=== PATIENT | male | born 2000 | race Caucasian/White ===

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

== ENCOUNTER → 2023-12-05 | Outpatient (CLI) | payer OTHER, SELFPAY ==
--- NOTE | 2023-12-05 10:22 | RAD_ITS ---
STUDY: X-RAY - LEFT KNEE REASON FOR EXAM: Male, 23 years old. Knee injury TECHNIQUE: 3 view(s) of the knee. COMPARISON: None. FINDINGS: Normal visualized distal femur. Normal visualized proximal tibia and fibula. Normal proximal tibiofibular articulation. Normal medial femorotibial compartment. Normal lateral femorotibial compartment. Normal patellofemoral articulation. Moderate-sized joint effusion. RAD/Knee 3 Views IMPRESSION: Moderate-sized joint effusion. Electronically Signed: Delio Larkin MD at 10:45 EDT ,
== END | disposition home or self-care (01) ==
LOC: MTRAD 10:22
PROVIDERS: PCP Family Medicine; Referring Provider Physician Assistant; Visit Provider Physician Assistant
DX: S89.90XA Unspecified injury of unspecified lower leg, initial encounter (principal)
CPT/HCPCS: 73562

== ENCOUNTER 2024-02-06 10:52 | Day surgery (SDC) | payer OTHER, SELFPAY ==
[2024-02-06] VITALS (13 sets, daily range): BP systolic 148–177; BP diastolic 92–109; PULSE 58–95; RESP 16–20; TEMP 36.3–36.9; O2SAT 92–98; BMI 32.2
[2024-02-06] MEDS: Lactated Ringers 1,000 ML 15 ML IV (11:22)
--- NOTE | 2024-02-06 12:07 | PCM.HP.STD ---
HPI - General HPI Narrative DEBORAH LOVETT, is a 23 M who presents for left knee ACL reconstruction, quadriceps tendon autograft. no change to h and p. rab post op instructions and narcotic counselling. left knee marked. ok to proceed. no further questions. MR#: [id number] Acct: [id number] Name: DEBORAH LOVETT Rep #: [id number] : 2000 Provider: Dr. Nnamdi Funez MD Age/Sex: 23/M Location: [facility] [place] Status: Signed Intake Vital Signs 12/04/2409:42 Height 5 ft 9 in Weight: 220 lb BMI 32.5 BP 130/78 H Blood Pressure Location Lt brachial Position Sitting Respiration 15 Pulse 72 Pulse Source NIBP Temp 97.9 F Temp Source Temporal Pulse Oximetry (%) 97 Oxygen Delivery Method room air Intake Visit Reasons: LEFT KNEE Chief Complaint: MRI review Accompanied by: Self Is patient in pain?: Yes Pain scale (1-10): 3 Allergies morphine Adverse Reaction (Mild, Verified 12/27/23 09:00) Vomiting Medications ?Medication ?Instructions ?Recorded ?Confirmed ?Type NK 12/05/23 12/27/23 History PFSH Medical History Complete tear of anterior cruciate ligament of left knee Left knee pain Strain of left knee Internal derangement of left knee Hay fever Surgical History History of tonsillectomy and adenoidectomy No pertinent past surgical history Social History household members: none Smoking Status: Former smoker alcohol intake: current HPI LEFT KNEE Details: This documentation accurately reflects the service provided and the decisions made by me, Dr. Nnamdi Funez MD 12/27/23 0840. Part of today?s visit was documented by [ ], acting as scribe. DEBORAH LOVETT is a 23 year old M here today for FU L knee ACL tear, with disc for review and to book surgery. Supplemental Info report scanned into chart re ACL tear with bone bruises. I independently reviewed the imaging. Concur with radiologist report. Coding Level of Care Code Off vis,est,level 3 Diagnoses Complete tear of anterior cruciate ligament of left knee S83.512A Left knee pain M25.562 Assessment and Plan Assessment and Plan (1) Complete tear of anterior cruciate ligament of left knee: Status: Acute Plan: DEBORAH LOVETT is a 23 year old M here today for FU L knee ACL tear, with disc for review and to book surgery. I agree with the radiologist interpretation. Will have the disc uploaded. Again went over the diagnosis prognosis different treatment options. The patient is interested in surgery. Went over the different graft choices fixation methods as well as postoperative recovery 2 weeks on crutches potentially longer if there is a meniscus tear that was found during surgery and that necessitated repair. Otherwise up to 9 months to a year before returning to sports and other pivoting activities. Patient understands wished to proceed with surgery signed the consent form for left knee arthroscopy, anterior cruciate ligament reconstruction quadriceps tendon autograft. Pros and cons risks and benefits were discussed with the patient including but not limited to infection, pain, stiffness, bleeding, damage to surrounding structures, neurovascular injury, recurrence or retear, failure or wear of hardware or fixation, instability, fracture, deep vein thrombosis and pulmonary embolism, anesthetic risks, , patient dissatisfaction, need for further surgery and other risks. Patient understood and wished to proceed with surgery, and signed the informed consent documentation. (2) Left knee pain: Status: Acute Ortho Exam General General: Yes no acute distress Neurologic: Yes alert and Yes oriented x3 Psychologic: Yes reasonable and appropriate Left Knee KNEE: normal alignment. [facility] Medical History (Updated 01/29/24 @ 12:41 by Mami Benavides) Alcohol use Migraine headache Injury of head and neck Vapes nicotine containing substance History of pain when walking Complete tear of anterior cruciate ligament of left knee Left knee pain Strain of left knee Internal derangement of left knee Hay fever Home Medications ?Medication ?Instructions ?Recorded ?Last Taken ?Type NK 12/05/23 Unknown History Allergy/AdvReac Type Severity Reaction Status Date / Time morphine AdvReac Mild Vomiting Verified 02/06/24 11:17 Surgical History History of tonsillectomy and adenoidectomy No pertinent past surgical history Social History household members: none Smoking Status: Current every day smoker tobacco type: e-cigarettes alcohol intake: current Vital Signs Vital Signs Vital Signs: 02/06/24 11:22 02/06/24 11:22 Temperature 97.9 F Temperature Source Temporal Pulse Rate 58 L Respiratory Rate 17 Respiratory Pattern Normal Blood Pressure 150/93 H Blood Pressure Mean 112 Blood Pressure Source Monitor Blood Pressure Position Semi-Fowlers Blood Pressure Location Left Arm Pulse Ox 98 Oxygen Delivery Method Room Air Weight Weight: 218 lb 4.122 oz Body Mass Index (BMI) 32.2
--- NOTE | 2024-02-06 12:11 | PCM.PRE.AN2 ---
ASA Classification* ASA Classification ASA Classification: 2 Assessment & Plan Anesthesia* Anesthesia Assessment Anesthesia Assessment: Discussed sedation and/or anesthesia options, risks, benefits, and alternatives with patient/parents/legal guardian/POA. Questions invited. The patient/parents/legal guardian/POA seems to understand and agrees to proceed with anesthesia plan. Reviewed the physical assessment, medical history, allergy history and patient home medications list prior to surgery/procedure/anesthetic and documented any changes. Performed airway and anesthesia risk assessments. Anesthesia Type Anesthesia Type: General and Block Anesthesia Focused Assessment* Temperature: 97.9 F Pulse Rate: 58 Blood Pressure: 150/93 Respiratory Rate: 17 Pulse Ox: 98 Airway Assessment Mouth opens: >3 cm Mallampati Score: II Focused Labs Anesthesia Preop lab: CBC CHEMISTRY COAG Pre-Assessment Diagnosis/Proposed Procedure Planned Operative Procedure(s): Left knee Arthroscopy, anterior cruciate ligament reconstruction, quadriceps tendon autograft Anesthesia History Anesthesia History - geosciences professor: Anesthesia History - geosciences professor Hx Hospitalization No 01/29/24 12:41 Any Problems With Anesthesia No 01/29/24 12:41 Cholinesterase deficiency No 01/29/24 12:41 You/Your Family Experience No 01/29/24 12:41 fever (hyperthermia) with Relationship Recent Exposure to Contagious No 02/06/24 11:22 Disease Does patient have nerve No 01/29/24 12:41 stimulator Patient instructed to have device shut off --Does patient have Pacemaker No 02/06/24 11:22 or ICD? When Was Last Pacemaker Check QUESTION #4 FULL TEXT: You/Your Family Experience fever (hyperthermia) with Anesthesia Last Oral Intake Last Oral intake: Last Oral Intake NPO since 00:00 02/06/24 11:22 Meds taken in AM with sips of water? Meds patient instructed to take am of surgery PONV PONV - geosciences professor: PONV - geosciences professor Female No 01/29/24 12:41 HX of Motion Sickness No 01/29/24 12:41 HX of N/V After Surgery No 01/29/24 12:41 Non-Smoker No 01/29/24 12:41 Duration of Surgery greater Yes 01/29/24 12:41 than 60 minutes Number of Risk Factors 1 01/29/24 12:41 PONV Score Low Risk 01/29/24 12:41 Height & Weight Height & Weight: Anesthesia: Height & Weight Height 5 ft 9 in 02/06/24 11:22 Weight: 99 kg 02/06/24 11:22 Body Mass Index (BMI) 32.2 02/06/24 11:22 Respiratory Assessment Respiratory Assessment - geosciences professor: Respiratory Tract Infection Hx - geosciences professor Hx Respiratory Tract Infection No 01/29/24 12:41 STOP Sleep Apnea STOP Sleep Apnea - geosciences professor: STOP Sleep Apnea - geosciences professor Hx Hypertension No 01/29/24 12:41 Hx Sleep Apnea No 01/29/24 12:41 CPAP BIPAP Do you snore loudly (louder No 01/29/24 12:41 than talking or can be heard Do you often feel tired/ No 01/29/24 12:41 fatigued/ sleepy during daytime? Has anyone observed you stop No 01/29/24 12:41 breathing during sleep? STOP Results Negative 01/29/24 12:41 QUESTION #5 FULL TEXT : Do you snore loudly (louder than talking or can be heard through closed doors)? Tobacco Use History Tobacco Use History - geosciences professor: Tobacco Use History - geosciences professor Tobacco Use Smoking Status Current every day smoker 01/29/24 12:41 Hx Tobacco Use Yes 01/29/24 12:41 Years Smoking Packs Smoked per Day Smoking Cessation Date was within the last 15 years Hx Smoking Cessation Date Hx Smoking Cessation Counseling Hematologic Medial History Hematologic Hx - geosciences professor: Hematologic Medical Hx - diagnostic technologist Hx of Blood Transfusion No 01/29/24 12:41 Hx of Transfusion in last 3 No 01/29/24 12:41 Months Date of Last Transfusion (if within last 3 months) Ever experience any problems No 01/29/24 12:41 with transfusion(s)? Specify any problems Hx of Preganancy in last 3 N/A 01/29/24 12:41 Months Nurse Filling Out Transfusion VCHRISTIN 01/29/24 12:41 & Questions: Date: 01/29/24 01/29/24 12:41 Time: 12:43 01/29/24 12:41 Patient unable to answer at this time (ie. confused, unrespo /Reproduction History /Reproductive History - geosciences professor: /Reproductive Hx- geosciences professor Hx Now Gestational Age (in weeks): EDC: Hx Hx Para Hx Section SAB Active Medications Active Medications: Current Medications Generic Name Dose Route Start Last Admin Trade Name Freq PRN Reason Stop Dose Admin Cefazolin Sodium 2 gm/ N/A 20 mls @ 400 mls/hr 02/06/24 12:45 IV 02/06/24 12:47 PREOP ONE Lactated Ringer's 1,000 mls @ 15 mls/hr 02/06/24 11:15 02/06/24 11:22 IV 02/09/24 05:54 15 mls/hr .Q48H FLAVIA Administration Protocol [facility] Medical History Alcohol use Migraine headache Injury of head and neck Vapes nicotine containing substance History of pain when walking Complete tear of anterior cruciate ligament of left knee Left knee pain Strain of left knee Internal derangement of left knee Hay fever Home Medications ?Medication ?Instructions ?Recorded ?Last Taken ?Type NK 12/05/23 Unknown History Allergy/AdvReac Type Severity Reaction Status Date / Time morphine AdvReac Mild Vomiting Verified 02/06/24 11:17 Surgical History History of tonsillectomy and adenoidectomy No pertinent past surgical history Social History household members: none Smoking Status: Current every day smoker tobacco type: e-cigarettes alcohol intake: current Review of Systems (Anesthesia) ROS Narrative System reviewed and no additional complaints, except as documented.
[2024-02-06] MEDS: Cefazolin 2 GM in Syringe IV (12:42)
[2024-02-06] MEDS: Epinephrine (1 mg/ml) 1 MG/ML VIAL (13:15)
[2024-02-06] MEDS: Bupivacaine 0.25% 30 ML Vial (14:30)
--- NOTE | 2024-02-06 14:42 | DCINST_ITS ---
Discharge Instructions Diet Discharge Diet: No restrictions Activity Discharge Activity: Return to Normal Activity Ice area for (Minutes): 10 Weight Bearing Status: Weight bearing as tolerated Lifting Restrictions: crutches 2 weeks Keep extremity elevated above heart level: Operative Extremity Dressing / Incision Call your doctor if your incision/area has: Continuous Slow Oozing, Sudden Increased Bleeding, Increased Pain/ Swelling, Increased Redness, Foul Smelling Discharge and Swelling at the incision site Call your doctor if you observe: Fever of 101 or Higher, Coldness, Increased Pain and Numbness or Tingling Remove Dressing in: 2 days Cleanse incision/area with: Do not get Incision Wet Follow Up Care Please Follow Up With: Nnamdi Funez MD When: 2 days Test Results: Test results from this visit will be discussed in further detail at your follow- up appointment, if applicable. Discharge Plan Admission Attending Provider: Nnamdi Funez Primary Care Provider: Gigi Naqvi Instructions Print Language: Scottish Discharge Orders/Prescriptions Prescriptions: New oxycodone-acetaminophen [Endocet] 5-325 mg tablet 1 tab PO Q4H MDD 6 PRN (Reason: pain) 5 Days Qty: 30 0RF No Action NK Referrals / Follow Up: Gigi Naqvi MD [Primary Care Provider] - Nnamdi Funez MD [Med Staff - Active Staff] - Disposition Disposition (needs filled in before D/C Order can be placed): Home, Self Care
--- NOTE | 2024-02-06 14:47 | OP.PCM_ITS ---
Problems Associated Problem List Diagnoses (1) Complete tear of anterior cruciate ligament of left knee: Operative Report (Standard) Operative Information Surgery/Procedure Performed: L knee arthroscopy ACL reconstruction quadriceps tendon autograft Surgeon: Nnamdi Funez Date of Procedure: 02/06/24 Procedure Start Time: 13:05 Procedure Stop Time: 14:32 Pre-Operative Diagnosis: Left knee ACL tear Post-Operative Diagnosis: Same Select all DRAINS/GRAFTS/IMPLANTS that apply: Implanted device Implanted device details: Arthrex ACL buttons Type of Anesthesia: General and Local Estimated Blood Loss: 50 Specimen collected: No Description of surgery: Patient brought to the operating room theater. Placed supine on table. General anesthesia induced. 2 g IV Ancef administered prior to the start of the procedure. All bony prominences padded. SCD on the nonoperative leg. Stress positioner to the patient's left side tourniquet applied to the left thigh appropriately padded. Lower extremity prepped and draped in the usual sterile fashion with chlorhexidine-based prep solution allowing over 3 minutes drying time prior to draping. Preoperative timeout performed. To confirm the site patient and the surgery. Did an examination under anesthetic with a 2+ pivot shift test and 2+ Simeon. Began by elevating the limb inflated the tourniquet to 250 mmHg. Use standard anterolateral anteromedial arthroscopy portals. Did a full diagnostic arthroscopy. Cartilage in all 3 compartments was normal. Medial lateral meniscus was normal. PCL appeared normal. The ACL there is full-thickness tear. I debrided the remnant remove that. Protected the anterior intrameniscal ligament. Arthroscope was withdrawn. Transverse incision made at the proximal pole the patella at the distal quadric eps insertion. Carried the dissection down through skin and subcutaneous tissue achieved meticulous hemostasis. Next started the graft off distally by making a small U-shaped incision at the distal quadriceps placed a suture at this place the suture through the Arthrex 9 mm quadriceps Pro harvester. [place] a length of 7 cm graft and truncated this proximally. Closed the defect [id number] wi th #1 Vicryl sutures loosely approximated [id number] sutures with #1-0 Vicryl. Graft thickness was good. I ensured to not violate the capsule of the knee. I then turned my attention to size and the graft. Slightly made the ends more bullet shaped. Use the Arthrex buttons for both the femoral and tibial side with the ABS button loop on the tibial side slightly more narrow end of the graft. I placed a passing suture at the ABS button loop side and on the femoral button side there was also the sutures from the internal brace. Graft placed on tension slightly shorter than 7 mm. Diameter was 10 mm on both sides. A wet sponge was placed. With intermittent tension of the knee I placed a passport cannula at the anterior medial portal. I drilled both tunnels inside out retrograde using the flip cutter generation 3 at 10 mm of these were both 3 cm tunnels drilled in appropriate position. On the femoral side this was low and posterior ensuring to keep a good backwall and at the prior origin of the ACL. In terms of the tibial attachment of the ACL this is in line with the anterior horn lateral meniscus and again where the previous fibers were located. Tunnel sites were checked a good back wall bone dust irrigated and debrided. Passing sutures were used to then passed the femoral button up onto the lateral cortex button flipped graft delivered into the tunnel for a length of 3 cm. I then used the passing suture to pass the ABS button loop through the tibial tunnel as well as the sutures for the internal brace. I cycled the knee 15 times then affixed to the tibial button and's cinched the sutures short and tied these over the button in full extension. Pivot shift and Simeon was limited and knee was stable and solid. I then fixated the internal brace in full extension slightly less tension than the graft. I used Arthrex 4.75 mm bio composite suture anchor. I drilled and tapped for this. This was solidly fixated sutures cut short. Arthroscopy pictures taken and saved throughout the case onto the system. Wound thoroughly irrigated. Subcutaneous tissue closed with 2-0 Vicryl sutures and skin with 3-0 Monocryl. 20 cc of quarter percent bupivacaine instilled in around the soft tissue sites. Skin cleaned with wet and dry dressing followed application of Steri-Strips Adaptic 4 x 4 gauze ABD dressing Martín wrap. Patient woken up from the general acetic transfer off the operating table taken postanesthetic care unit in stable condition. All sponge needle instrument counts were correct no complications plan for the patient weightbearing as tole rated range of motion as tolerated with crutches for the first 2 weeks rest ice and elevate the leg follow-up in the office in 2 days time after being discharged home according to day surgery criteria. cpt 54562 Surgical Findings: acl tear Experimental Rocketsled Mechanic cleaner assistant: Yes [employer] Sales Representative: diane Tasks completed by grants assistant: Retracting and Other (positioning) Additional assistant professor of english?: No Complications Complications: No Admit VTE Documentation VTE Present on Admission: No VTE Mechan Device Prophylaxis: SCD's VTE Pharm Prophylaxis ordered?: No Reason prophylaxis not ordered: Treatment Not Indicated Procedures Musculoskeletal 20xxx-29xxx: Other Procedure See Report
--- NOTE | 2024-02-06 14:53 | PCM.POST.ANE ---
Anesthesia: Postop Eval I Current Vital Signs Temperature: 97.4 F Pulse Rate: 88 Blood Pressure: 168/99 Respiratory Rate: 16 Pulse Ox: 98 Oxygen Delivery Method: Room Air Assessment Airway patent: Yes Spontaneous unlabored respirations: Yes Mental status: Awake and Calm nausea: No Vomiting: No Anesthesia Complication: No Fluid Hydration Crystalloid volume administer (ml): 1,500 Total IV fluid infused: 1,500 Progress Note Anesthesia document: Postop Eval 1 completed: Yes
[2024-02-06] MEDS: HYDROcodone Bitartrate/Apap 5/325 Tablet PO (16:53)
--- NOTE | 2024-02-06 17:06 | POSTOPAN2_ITS ---
Anesthesia Postop Eval I Sum Postop Eval Completion status Anesthesia document: Postop Eval 1 completed: Yes Anesthesia Postop Eval I Summary Anesthesia Postop Eval I Summary: Anesthesia Postop Eval I: Assessment Summary Airway patent Yes 02/06/24 14:53 SPECIAL CLIENT BUS [email or web address] Spontaneous unlabored Yes 02/06/24 14:53 SPECIAL CLIENT BUS DRIVER.[email or web address] respirations Mental status Awake,Calm 02/06/24 14:53 SPECIAL CLIENT BUS DRIVER.[email or web address] nausea No 02/06/24 14:53 SPECIAL CLIENT BUS DRIVER.[email or web address] Vomiting No 02/06/24 14:53 SPECIAL CLIENT BUS DRIVER.[email or web address] Anesthesia Postop Eval I: Fluid Summary Crystalloid volume administer 1,500 02/06/24 14:53 SPECIAL CLIENT BUS DRIVER.[email or web address] (ml) Colloids volume administered ( ml) Blood Product volume administered (ml) Total IV fluid infused 1,500 02/06/24 14:53 SPECIAL CLIENT BUS DRIVER.[email or web address] Anesthesia Postop Eval I: Summary Notes Anesthesia Complication No 02/06/24 14:53 SPECIAL CLIENT BUS DRIVER.[email or web address] Anesthesia Complication Comment: Post-operative progress note Anesthesia: Postop Eval II Evaluation Mental status: Awake and Calm Pain Level: 1 nausea: No Vomiting: No
--- NOTE | 2024-02-06 17:06 | PCM.POSTANE2 ---
Anesthesia Postop Eval I Sum Postop Eval Completion status Anesthesia document: Postop Eval 1 completed: Yes Anesthesia Postop Eval I Summary Anesthesia Postop Eval I Summary: Anesthesia Postop Eval I: Assessment Summary Airway patent Yes 02/06/24 14:53 SCHOOL [email or web address] Spontaneous unlabored Yes 02/06/24 14:53 SCHOOL [email or web address].[email or web address] respirations Mental status Awake,Calm 02/06/24 14:53 SCHOOL [email or web address] nausea No 02/06/24 14:53 SCHOOL [email or web address] Vomiting No 02/06/24 14:53 SCHOOL [email or web address].[email or web address] Anesthesia Postop Eval I: Fluid Summary Crystalloid volume administer 1,500 02/06/24 14:53 SCHOOL [email or web address].[email or web address] (ml) Colloids volume administered ( ml) Blood Product volume administered (ml) Total IV fluid infused 1,500 02/06/24 14:53 SCHOOL [email or web address].[email or web address] Anesthesia Postop Eval I: Summary Notes Anesthesia Complication No 02/06/24 14:53 SCHOOL [email or web address].[email or web address] Anesthesia Complication Comment: Post-operative progress note Anesthesia: Postop Eval II Evaluation Mental status: Awake and Calm Pain Level: 1 nausea: No Vomiting: No
== END 2024-02-06 17:43 | disposition home or self-care (01) ==
LOC: SDC 10:54 → AC 11:00
PROVIDERS: PCP Family Medicine; Referring Provider Orthopaedic Surgery Sports Medicine; Visit Provider Orthopaedic Surgery Sports Medicine
PROC: (CPT 29888; principal; 2024-02-06 12:25)
DX: S83.512A Sprain of anterior cruciate ligament of left knee, initial encounter (principal); F17.210 Nicotine dependence, cigarettes, uncomplicated; Z90.89 Acquired absence of other organs; M25.562 Pain in left knee; X58.XXXA Exposure to other specified factors, initial encounter
CPT/HCPCS: 29888; 01400; C1713; J7120; J2405

== ENCOUNTER 2024-09-18 17:30 | Outpatient (RCR) | payer OTHER, SELFPAY ==
--- NOTE | 2024-02-15 14:05 | HP.PTEVAL_ITS ---
Patient's Visit Information Visit Information Visit Information: DEBORAH LOVETT is a 23 year old M referred to Physical Therapy by Dr. Nnamdi Funez MD with a diagnosis of L ACL repair 02/06/24. Date of Evaluation: 02/15/24 Physical Therapist: Marcus Bentley, PT, ATC Visit Plan Frequency: 2-3x /Week Duration: 6-8 weeks Plan: Pt is WBAT. L LE stretching and strengthening, L knee PROM, core stab ex's, balance and proprio, nustep, and HEP Subjective Subjective: DOS: 01/06/24. Pt reports he tore his L ACL while playing basketball. Pt reports no prior Hx of L knee complications prior to this injury. Pt reports he is still in a lot of pain today. Pt reports he has been trying to straighten it and bend it as tolerated to preserve his ROM. Pt reports he has been walking with crutches, and is able to WB approximately 25 % of his weight. 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 Pt denies tingling and numbness in his L LE at this time. Pt reports no sleep difficulty at this time secondary to pain. Pt has no stairs at home and no steps to enter his house. 1/10 pain at rest, 3/10 pain at worst (if he moves it wrong, or when he wakes up in the morning) Pain L knee: Pain Intensity (Out of 10): 1 Pain Intensity Range: 3 Objective Objective: Neuro: B LE sensation is WNL to light touch. Girth at joint line: R knee 38 cm, L knee 42 cm TU sec ROM: R knee 0-140 ; L knee 0-15-60 degrees MMT: R knee flex= 57, ext= 57; L knee flex= 20, ext= 0 #F Balance/Special Test Scores Lower Extremity Functional Score: 15 Goals Goal 1:: Decrease L knee pain x 50% to aid with ambulation Goal Time Frame: 6-8 Weeks Goal 2:: Increase L knee ROM x 40 degrees to aid with restoring a more normalized gait pattern Goal Time Frame: 6-8 Weeks Goal 3:: Increase L knee strength x 30#F to aid with return to work Goal Time Frame: 6-8 Weeks Goal 4:: I with HEP Goal Time Frame: 6-8 Weeks Rehabilitation Potential Physical Therapy Diagnosis: L LE pain, weakness, and limited ROM secondary to L ACL repair Rehabilitation Potential: Good Anticipated Interventions Patient/Client Instruction: Educate patient on: Condition and Plan of Care For the Purpose of:: To improve self management Therapeutic Exercise to Include: Strength training, Endurance training, Balance training, Flexibilty training, Gait and locomotor training, Passive ROM, Active ROM and Dynamic Lumbar Stabilization For the Purpose of:: To decrease pain, To increase ROM and To improve muscle performance and motor function Cryotherapy (ice pack, ice massage): Yes For the Purpose of:: To decrease pain Text: Thank you for the opportunity to evaluate your patient. For Medicare and Medicare HMO plans, please review the plan of care and approve it. It will need to be FAXED BACK to us at [phone] for Medicare purposes. For Medicare only, by signing this I certify the plan of care. Please let me know if there are questions or concerns regarding this plan of care. Physician Signature: Date:
--- NOTE | 2024-03-13 16:05 | HP.PTREVAL ---
Re-Evaluation Intro: Dr. Nnamdi Funez MD, It has been my pleasure to treat DEBORAH LOVETT over the last 9 visits for L ACL repair 02/06/24. Please see the progress note below for an update on the physical therapy plan of care! Subjective Subjective: Pt reports he continues to improve Objective Objective/Function: L knee pain is 0-2/10 L knee ROM: 0-10-112 degrees L knee MMT: flex= 54, ext= 43 #F Pt is showing excellent progress at this time Plan Plan Plan: 03/13/24- L LE stretching and strengthening, L knee PROM, core stab ex's, balance and proprio, nustep, and HEP Balance/Gait/Functional tests Balance/Special Test Scores Lower Extremity Functional Score: 46 Goals Goals Goal 1:: Decrease L knee pain x 50% to aid with ambulation Goal Time Frame: 6-8 Weeks Goal Progress: Progressing Goal 2:: Increase L knee ROM x 40 degrees to aid with restoring a more normalized gait pattern Goal Time Frame: 6-8 Weeks Goal Progress: Progressing Goal 3:: Increase L knee strength x 30#F to aid with return to work Goal Time Frame: 6-8 Weeks Goal Progress: Progressing Goal 4:: I with HEP Goal Time Frame: 6-8 Weeks Goal Progress: Progressing Anticipated Interventions Anticipated Interventions Patient/Client Instruction: Educate patient on: Condition and Plan of Care For the Purpose of:: To improve self management Therapeutic Exercise to Include: Strength training, Endurance training, Balance training, Flexibilty training, Gait and locomotor training, Passive ROM, Active ROM and Dynamic Lumbar Stabilization For the Purpose of:: To decrease pain, To increase ROM and To improve muscle performance and motor function Cryotherapy (ice pack, ice massage): Yes For the Purpose of:: To decrease pain Re-Evaluation Ending Re-evaluation ending: Please do not hesitate to contact me at [phone] by phone or if you have questions or concerns regarding this new plan of care! Sincerely, Marcus Bentley, PT, ATC
--- NOTE | 2024-04-25 14:55 | HP.PTREVAL ---
Re-Evaluation Intro: Dr. Nnamdi Funez MD, It has been my pleasure to treat DEBORAH LOVETT over the last 20 visits for L ACL repair 02/06/24. Please see the progress note below for an update on the physical therapy plan of care! Subjective Subjective: Pt reports he is still continuing to improve Objective Objective/Function: L knee pain ranges from 0-1/10 L knee ROM: 0-8-128 degrees L knee MMT: flex= 55, ext= 48 #F Pt is demonstrating good ROM and strength at this time. Pt continues to lack full functional strength and ROM at this time. Plan Plan Plan: 04/25/24- Continue with functional strength and mobility at this time Balance/Gait/Functional tests Balance/Special Test Scores Lower Extremity Functional Score: 54 Goals Goals Goal 1:: Decrease L knee pain x 50% to aid with ambulation Goal Time Frame: 6-8 Weeks Goal Progress: Goal Met Goal 2:: Increase L knee ROM x 40 degrees to aid with restoring a more normalized gait pattern Goal Time Frame: 6-8 Weeks Goal Progress: Progressing Goal 3:: Increase L knee strength x 30#F to aid with return to work Goal Time Frame: 6-8 Weeks Goal Progress: Progressing Goal 4:: I with HEP Goal Time Frame: 6-8 Weeks Goal Progress: Progressing Anticipated Interventions Anticipated Interventions Patient/Client Instruction: Educate patient on: Condition and Plan of Care For the Purpose of:: To improve self management Therapeutic Exercise to Include: Strength training, Endurance training, Balance training, Flexibilty training, Gait and locomotor training, Passive ROM, Active ROM and Dynamic Lumbar Stabilization For the Purpose of:: To decrease pain, To increase ROM and To improve muscle performance and motor function Cryotherapy (ice pack, ice massage): Yes For the Purpose of:: To decrease pain Re-Evaluation Ending Re-evaluation ending: Please do not hesitate to contact me at [phone] by phone or if you have questions or concerns regarding this new plan of care! Sincerely, Marcus Bentley, PT, ATC
--- NOTE | 2024-06-02 17:19 | HP.PTREVAL ---
Re-Evaluation Intro: Dr. Nnamdi Funez MD, It has been my pleasure to treat DEBORAH LOVETT over the last 27 visits for L ACL repair 02/06/24. Please see the progress note below for an update on the physical therapy plan of care! Subjective Subjective: Pt reports he continues to notice improvements Objective Objective/Function: L knee pain ranges from 0-2/10 L knee ROM: 0-130 degrees L knee MMT: flex= 90, ext= 41 #F Pt is showing excellent progress with PT at this time. Pt still lacks significant knee extension strength Plan Plan Plan: 06/02/24- Continue with functional strength and mobility at this time. Cont to progress quad strengthening as pt is very weak at this time Balance/Gait/Functional tests Balance/Special Test Scores Lower Extremity Functional Score: 46 Goals Goals Goal 1:: Decrease L knee pain x 50% to aid with ambulation Goal Time Frame: 6-8 Weeks Goal Progress: Goal Met Goal 2:: Increase L knee ROM x 40 degrees to aid with restoring a more normalized gait pattern Goal Time Frame: 6-8 Weeks Goal Progress: Progressing Goal 3:: Increase L knee strength x 30#F to aid with return to work Goal Time Frame: 6-8 Weeks Goal Progress: Progressing Goal 4:: I with HEP Goal Time Frame: 6-8 Weeks Goal Progress: Progressing Anticipated Interventions Anticipated Interventions Patient/Client Instruction: Educate patient on: Condition and Plan of Care For the Purpose of:: To improve self management Therapeutic Exercise to Include: Strength training, Endurance training, Balance training, Flexibilty training, Gait and locomotor training, Passive ROM, Active ROM and Dynamic Lumbar Stabilization For the Purpose of:: To decrease pain, To increase ROM and To improve muscle performance and motor function Cryotherapy (ice pack, ice massage): Yes For the Purpose of:: To decrease pain Re-Evaluation Ending Re-evaluation ending: Please do not hesitate to contact me at [phone] by phone or if you have questions or concerns regarding this new plan of care! Sincerely, Marcus Bentley, PT, ATC
--- NOTE | 2024-06-02 17:22 | HP.PTREVAL ---
Re-Evaluation Intro: Dr. Nnamdi Funez MD, It has been my pleasure to treat DEBORAH LOVETT over the last 27 visits for L ACL repair 02/06/24. Please see the progress note below for an update on the physical therapy plan of care! Subjective Subjective: Pt reports he continues to notice improvements Objective Objective/Function: L knee pain ranges from 0-2/10 L knee ROM: 0-130 degrees L knee MMT: flex= 90, ext= 41 #F Pt is showing excellent progress with PT at this time. Pt still lacks significant knee extension strength Plan Plan Plan: 06/02/24- Continue with functional strength and mobility at this time. Cont to progress quad strengthening as pt is very weak at this time Balance/Gait/Functional tests Balance/Special Test Scores Lower Extremity Functional Score: 46 Goals Goals Goal 1:: Decrease L knee pain x 50% to aid with ambulation Goal Time Frame: 6-8 Weeks Goal Progress: Goal Met Goal 2:: Increase L knee ROM x 40 degrees to aid with restoring a more normalized gait pattern Goal Time Frame: 6-8 Weeks Goal Progress: Progressing Goal 3:: Increase L knee strength x 30#F to aid with return to work Goal Time Frame: 6-8 Weeks Goal Progress: Progressing Goal 4:: I with HEP Goal Time Frame: 6-8 Weeks Goal Progress: Progressing Anticipated Interventions Anticipated Interventions Patient/Client Instruction: Educate patient on: Condition and Plan of Care For the Purpose of:: To improve self management Therapeutic Exercise to Include: Strength training, Endurance training, Balance training, Flexibilty training, Gait and locomotor training, Passive ROM, Active ROM and Dynamic Lumbar Stabilization For the Purpose of:: To decrease pain, To increase ROM and To improve muscle performance and motor function Cryotherapy (ice pack, ice massage): Yes For the Purpose of:: To decrease pain Re-Evaluation Ending Re-evaluation ending: Please do not hesitate to contact me at [phone] by phone or if you have questions or concerns regarding this new plan of care! Sincerely, Marcus Bentley, PT, ATC
--- NOTE | 2024-07-04 15:55 | HP.PTREVAL ---
Re-Evaluation Intro: Dr. Nnamdi Funez MD, It has been my pleasure to treat DEBORAH LOVETT over the last 35 visits for L ACL repair 02/06/24. Please see the progress note below for an update on the physical therapy plan of care! Subjective Subjective: No pain today Objective Objective/Function: B knee ROM 0-138 degrees MMT: R knee flex= 68, ext= 64 #F; L knee flex= 67, ext= 52 #F L knee pain 0/10 Pt is progressing well but continues to be limited with L knee extension strength at this time which limits his functional mobility Plan Plan Plan: 07/04/24- Continue with functional strengthening at this time with primary focus on the quads Balance/Gait/Functional tests Balance/Special Test Scores Lower Extremity Functional Score: 54 Goals Goals Goal 1:: Decrease L knee pain x 50% to aid with ambulation Goal Time Frame: 6-8 Weeks Goal Progress: Goal Met Goal 2:: Increase L knee ROM x 40 degrees to aid with restoring a more normalized gait pattern Goal Time Frame: 6-8 Weeks Goal Progress: Progressing Goal 3:: Increase L knee strength x 30#F to aid with return to work Goal Time Frame: 6-8 Weeks Goal Progress: Goal Met Goal 4:: I with HEP Goal Time Frame: 6-8 Weeks Goal Progress: Progressing Goal 5:: R knee extension strength will be 95% equal to L knee extension strength to aid with return to exercise without increased risk for injury Goal Time Frame: 4-6 Weeks Goal Progress: new goal Anticipated Interventions Anticipated Interventions Patient/Client Instruction: Educate patient on: Condition and Plan of Care For the Purpose of:: To improve self management Therapeutic Exercise to Include: Strength training, Endurance training, Balance training, Flexibilty training, Gait and locomotor training, Passive ROM, Active ROM and Dynamic Lumbar Stabilization For the Purpose of:: To decrease pain, To increase ROM and To improve muscle performance and motor function Cryotherapy (ice pack, ice massage): Yes For the Purpose of:: To decrease pain Re-Evaluation Ending Re-evaluation ending: Please do not hesitate to contact me at [phone] by phone or if you have questions or concerns regarding this new plan of care! Sincerely, Marcus Bentley, PT, ATC
--- NOTE | 2024-08-21 18:04 | HP.PTREVAL ---
Re-Evaluation Intro: Dr. Nnamdi Funez MD, It has been my pleasure to treat DEBORAH LOVETT over the last 44 visits for L ACL repair 02/06/24. Please see the progress note below for an update on the physical therapy plan of care! Subjective Subjective: Pt reports he is ready for discharge Objective Objective/Function: Pain 0/10 MMT: L knee flex= 68 (R= 66), ext= 40 (R=61) #F ROM: B knee's 0-130 degrees (approximately 60 percent) Single leg hop test: L 35 inches, R 51 inches Plan Plan Plan: Pt to cont I. Recheck or discharge in one month Balance/Gait/Functional tests Balance/Special Test Scores Lower Extremity Functional Score: 54 Goals Goals Goal 1:: Decrease L knee pain x 50% to aid with ambulation Goal Time Frame: 6-8 Weeks Goal Progress: Goal Met Goal 2:: Increase L knee ROM x 40 degrees to aid with restoring a more normalized gait pattern Goal Time Frame: 6-8 Weeks Goal Progress: Progressing Goal 3:: Increase L knee strength x 30#F to aid with return to work Goal Time Frame: 6-8 Weeks Goal Progress: Goal Met Goal 4:: I with HEP Goal Time Frame: 6-8 Weeks Goal Progress: Progressing Goal 5:: R knee extension strength will be 95% equal to L knee extension strength to aid with return to exercise without increased risk for injury Goal Time Frame: 4-6 Weeks Goal Progress: new goal Anticipated Interventions Anticipated Interventions Patient/Client Instruction: Educate patient on: Condition and Plan of Care For the Purpose of:: To improve self management Therapeutic Exercise to Include: Strength training, Endurance training, Balance training, Flexibilty training, Gait and locomotor training, Passive ROM, Active ROM and Dynamic Lumbar Stabilization For the Purpose of:: To decrease pain, To increase ROM and To improve muscle performance and motor function Cryotherapy (ice pack, ice massage): Yes For the Purpose of:: To decrease pain Re-Evaluation Ending Re-evaluation ending: Please do not hesitate to contact me at [phone] by phone or if you have questions or concerns regarding this new plan of care! Sincerely, Marcus Bentley, PT, ATC
--- NOTE | 2024-09-18 18:00 | HP.PTREVAL ---
Re-Evaluation Intro: Dr. Nnamdi Funez MD, It has been my pleasure to treat DEBORAH LOVETT over the last 45 visits for L ACL repair 02/06/24. Please see the progress note below for an update on the physical therapy plan of care! Subjective Subjective: No pain today Objective Objective/Function: MMT: R knee flex= 69, ext=81 #F ; L knee flex= 64, ext= 64 #F SL hop L= 41 in, R= 47 in Pt continues to make sig gains at this time Plan Plan Plan: Discharge to [facility] Balance/Gait/Functional tests Balance/Special Test Scores Lower Extremity Functional Score: 54 Goals Goals Goal 1:: Decrease L knee pain x 50% to aid with ambulation Goal Time Frame: 6-8 Weeks Goal Progress: Goal Met Goal 2:: Increase L knee ROM x 40 degrees to aid with restoring a more normalized gait pattern Goal Time Frame: 6-8 Weeks Goal Progress: Goal Met Goal 3:: Increase L knee strength x 30#F to aid with return to work Goal Time Frame: 6-8 Weeks Goal Progress: Goal Met Goal 4:: I with [facility] Goal Time Frame: 6-8 Weeks Goal Progress: Goal Met Goal 5:: R knee extension strength will be 95% equal to L knee extension strength to aid with return to exercise without increased risk for injury Goal Time Frame: 4-6 Weeks Goal Progress: Progressing Anticipated Interventions Anticipated Interventions Patient/Client Instruction: Educate patient on: Condition and Plan of Care For the Purpose of:: To improve self management Therapeutic Exercise to Include: Strength training, Endurance training, Balance training, Flexibilty training, Gait and locomotor training, Passive ROM, Active ROM and Dynamic Lumbar Stabilization For the Purpose of:: To decrease pain, To increase ROM and To improve muscle performance and motor function Cryotherapy (ice pack, ice massage): Yes For the Purpose of:: To decrease pain Re-Evaluation Ending Re-evaluation ending: Please do not hesitate to contact me at [phone] by phone or if you have questions or concerns regarding this new plan of care! Sincerely, Marcus Bentley, PT, ATC
--- NOTE | 2024-11-18 13:12 | HP.PTDCSUM ---
Discharge Summary D/C summary: It has been my pleasure to treat DEBORAH LOVETT referred by Dr. Nnamdi Funez MD, with the diagnosis of L ACL repair 02/06/24 for a total of 45 visit(s). Discharge Date: Please see the following information for a summary of their discharge status. Subjective Subjective: No pain today Pain L knee: Pain Intensity (Out of 10): 0 Overall Improvement % Improvement: 90 Objective Objective/Function: MMT: R knee flex= 69, ext=81 #F ; L knee flex= 64, ext= 64 #F SL hop L= 41 in, R= 47 in Pt continues to make sig gains at this time Goals Goal 1:: Decrease L knee pain x 50% to aid with ambulation Goal Progress: Goal Met Goal 2:: Increase L knee ROM x 40 degrees to aid with restoring a more normalized gait pattern Goal Progress: Goal Met Goal 3:: Increase L knee strength x 30#F to aid with return to work Goal Progress: Goal Met Goal 4:: I with HEP Goal Progress: Goal Met Goal 5:: R knee extension strength will be 95% equal to L knee extension strength to aid with return to exercise without increased risk for injury Goal Progress: Progressing Plan Plan: Discharge to [facility] D/C Information d/c sentence: If there are questions or concerns regarding this patient's physical therapy, please feel free to call me at [phone]. Thank you for the referral of this patient. Sincerely, Marcus Bentley, PT, ATC Balance/Gait/Functional tests Balance/Special Test Scores Lower Extremity Functional Score: 54 Improvement % Improvement: 90
== END 2024-09-18 19:00 | disposition home or self-care (01) ==
LOC: PT 17:30
PROVIDERS: PCP Family Medicine; Referring Provider Orthopaedic Surgery Sports Medicine; Visit Provider Orthopaedic Surgery Sports Medicine
DX: S83.512D Sprain of anterior cruciate ligament of left knee, subsequent encounter (principal)
CPT/HCPCS: 97110; 97161; 97530